=== PATIENT | female | born 1975 | race Hispanic/Latino ===

== ENCOUNTER 2022-03-12 20:52 | Emergency (ER) | payer SELFPAY ==
[2022-03-12 20:58] VITALS: BP 142/78
== END 2022-03-13 04:20 | disposition left against medical advice (07) ==
LOC: ED 20:52
DX: T14.8XXA Other injury of unspecified body region, initial encounter (principal); Z53.21 Procedure and treatment not carried out due to patient leaving prior to being seen by health care provider; X58.XXXA Exposure to other specified factors, initial encounter; Y92.89 Other specified places as the place of occurrence of the external cause; Y93.89 Activity, other specified; Y99.8 Other external cause status